=== PATIENT | female | born 1990 | race Caucasian/White ===

== ENCOUNTER 2019-06-21 16:49 | Emergency (ER) | payer SELFPAY ==
--- NOTE | 2019-06-21 17:35 | Emergency Department Report ---
{null, Blank Doc - Documentation Documentation: 28-year-old female that presents with vaginal bleeding and pelvic pain. This initial assessment/diagnostic orders/clinical plan/treatment(s) is/are subject to change based on patient's health status, clinical progression and re- assessment by fellow clinical providers in the ED. Further treatment and workup at subsequent clinical providers discretion. Patient/guardians urged not to elope from the ED as their condition may be serious if not clinically assessed and managed. Initial orders include: 1- Patient sent to [facility] for further evaluation and treatment 2- labs 3- UA 4- US OB }
[2019-06-21 18:49] LABS: Bacteria,Urine 1+ /HPF (Negative); Bilirubin,Urine NEG (Negative); Blood,Urine LG (Negative); Color,Urine Yellow (Yellow); Mucus,Urine FEW /HPF; Protein,Urine <15 mg/dL mg/dL (Negative); Urobilinogen,Urine < 2.0 mg/dL (<2.0)
[2019-06-21 18:55] LABS: Basophils % (Auto) 0.6 % (0.0-1.8); Eosinophils # (Auto) 0.2 K/mm3 (0.0-0.4); Hematocrit 40.9 % (30.3-42.9); Lymphocytes # (Auto) 2.4 K/mm3 (1.2-5.4); Lymphocytes % (Auto) 33.9 % (13.4-35.0); Mean Corpuscular HGB Conc 34 % (30-34); Mean Corpuscular Volume 91 fl (79-97); Monocytes # (Auto) 0.4 K/mm3 (0.0-0.8); Monocytes % (Auto) 6.2 % (0.0-7.3); Platelet Count 271 K/mm3 (140-440); Red Blood Count 4.48 M/mm3 (3.65-5.03); Red Cell Distribution Width 12.9 % (13.2-15.2)
--- NOTE | 2019-06-21 20:16 | Ultrasound Report ---
{null, OB Ultrasound HISTORY: pelvic pain and vaginal bleeding. TECHNIQUE: Grayscale and color imaging performed. COMPARISON: No recent comparison exam. FINDINGS: Transabdominal and endovaginal imaging was performed. Uterus measures 8.2 x 3.2 x 5.2 cm with endometrial echo complex measuring 6 mm. No intrauterine gest ation identified. No pelvic free fluid. Both ovaries are normal in size and appearance, with tiny ova facundo follicles noted. IMPRESSION: Unremarkable exam. Signer Name: Daniel Santiago MD Signed: 06/21/2019 8:11 PM Workstation Name: [id number] }
[2019-06-21] MEDS ORDERED: ACETAMINOPHEN W/CODEINE 300-30 MG TAB PO ONE (21:02)
--- NOTE | 2019-06-21 21:38 | Emergency Department Report ---
{null, ED Female HPI - General Chief complaint: Vaginal Bleeding Stated complaint: /ABD PAIN Time Seen by Provider: 06/21/19 17:34 Source: patient Mode of arrival: Ambulatory Limitations: No Limitations - History of Present Illness Initial comments: Ms. Oh is s 28 y/o female, G3, P2, A0, who presents for vaginal bleeding x 2 weeks. She states she is using 2 pads daily, had pos test at home, LMP 2 months ago. state some abd cramping, no fever, no chills, no n/v, no back pain , no vaginal discharge , she is and denies possibilty or concern for STI. MD Complaint: vaginal bleeding Onset/Timin -: week(s) Location: suprapubic, LLQ, RLQ Radiation: suprapubic Severity: moderate Severity scale (0 -10): 4 Quality: cramping Consistency: intermittent Improves with: none Worsens with: movement Are you Now?: Yes Last Menstrual Period: 05/02/19 EDC: 02/06/20 Associated Symptoms: vaginal bleeding, abdominal pain. denies: nausea/vomiting, fever/chills, headaches, loss of appetite, dysuria, hematuria, shortness of breath, syncope, weakness - Related Data Sexually active: Yes : 3 Para: 2 A: 0 Home Medications Medication Instructions Recorded Confirmed Last Taken Mv-Mn/Iron/FA/Herbal/Digestive 1 tab PO DAILY 10/24/13 10/24/13 10/23/13 08:00 [ One Tablet] Previous Rx's Medication Instructions Recorded Last Taken Type cephALEXin [Keflex] 500 mg PO Q12HR 7 Days #14 cap 06/21/19 Unknown Rx Allergies Allergy/AdvReac Type Severity Reaction Status Date / Time No Known Allergies Allergy Verified 10/24/13 04:26 ED Review of Systems ROS: Stated complaint: /ABD PAIN Other details as noted in HPI Constitutional: denies: chills, fever Eyes: denies: eye pain, eye discharge, vision change ENT: denies: ear pain, throat pain Respiratory: denies: cough, shortness of breath, wheezing Cardiovascular: denies: chest pain, palpitations Endocrine: no symptoms reported Gastrointestinal: abdominal pain (cramps). denies: nausea, vomiting, diarrhea, constipation, hematemesis, melena, hematochezia Genitourinary: abnormal menses (ovarian cyst ), other (vaginal bleeding ). den ies: urgency, dysuria, frequency, hematuria, discharge, dyspareunia Musculoskeletal: denies: back pain, joint swelling, arthralgia Skin: as per HPI Neurological: denies: headache, weakness, paresthesias Psychiatric: denies: anxiety, depression Hematological/Lymphatic: denies: easy bleeding, easy bruising ED Past Medical Hx - Past Medical History Previous Medical History?: No Hx Hypertension: No Hx Congestive Heart Failure: No Hx Diabetes: No Hx Deep Vein Thrombosis: No Hx Renal Disease: No Hx Sickle Cell Disease: No Hx Seizures: No Hx Asthma: No Hx COPD: No Hx HIV: No - Surgical History Past Surgical History?: No - Social History Smoking Status: Never Smoker Substance Use Type: None - Medications Home Medications: Home Medications Medication Instructions Recorded Confirmed Last Taken Type Mv-Mn/Iron/FA/Herbal/Digestive 1 tab PO DAILY 10/24/13 10/24/13 10/23/13 08:00 History [ One Tablet] cephALEXin [Keflex] 500 mg PO Q12HR 7 Days #14 cap 06/21/19 Unknown Rx ED Physical Exam - General Limitations: No Limitations General appearance: alert, in no apparent distress - Head Head exam: Present: atraumatic, normocephalic - Eye Eye exam: Present: normal appearance, PERRL, EOMI - ENT ENT exam: Present: mucous membranes moist - Neck Neck exam: Present: normal inspection - Respiratory Respiratory exam: Present: normal lung sounds bilaterally. Absent: respiratory distress, wheezes, stridor, chest wall tenderness - Cardiovascular Cardiovascular Exam: Present: regular rate, normal rhythm, normal heart sounds. Absent: systolic murmur, diastolic murmur, rubs, gallop - GI/Abdominal GI/Abdominal exam: Present: soft, normal bowel sounds. Absent: distended, tenderness, guarding, rebound, rigid, bruit, hernia - Rectal Rectal exam: Present: deferred - External exam: Present: other (exam deferred by patient ) - Extremities Exam Extremities exam: Present: normal inspection, full ROM. Absent: tenderness - Back Exam Back exam: Present: normal inspection, full ROM. Absent: tenderness, CVA tenderness (R), CVA tenderness (L), vertebral tenderness - Neurological Exam Neurological exam: Present: alert, oriented X3, CN II-XII intact, normal gait - Psychiatric Psychiatric exam: Present: normal affect, normal mood - Skin Skin exam: Present: warm, dry, intact, normal color. Absent: rash ED Course Vital Signs 06/21/19 06/21/19 17:35 21:05 Temperature 98.4 F Pulse Rate 71 Respiratory 18 18 Rate Blood Pressure 124/77 O2 Sat by Pulse 99 Oximetry ED Medical Decision Making - Lab Data Result diagrams: 06/21/19 18:33 Labs 06/21/19 06/21/19 06/21/19 18:33 18:33 18:33 WBC 6.9 RBC 4.48 Hgb 14.0 Hct 40.9 MCV 91 MCH 31 MCHC 34 RDW 12.9 L Plt Count 271 Lymph % (Auto) 33.9 [place] % (Auto) 6.2 Eos % (Auto) 3.0 Baso % (Auto) 0.6 Lymph # 2.4 [place]ade # 0.4 Eos # 0.2 Baso # 0.0 Seg Neutrophils % 56.3 Seg Neutrophils # 3.9 HCG, Quant 28.68 H Urine Color Urine Turbidity Urine pH Ur Specific [place] Urine Protein Urine Glucose (UA) Urine Ketones Urine Blood Urine Nitrite Urine Bilirubin Urine Urobilinogen Ur Leukocyte Esterase Urine WBC (Auto) Urine RBC (Auto) U Epithel Cells (Auto) Urine Bacteria (Auto) Urine Mucus Blood Type O POSITIVE 06/21/19 Unknown WBC RBC Hgb Hct MCV MCH MCHC RDW Plt Count Lymph % (Auto) [place] % (Auto) Eos % (Auto) Baso % (Auto) Lymph # [place] # Eos # Baso # Seg Neutrophils % Seg Neutrophils # HCG, Quant Urine Color Yellow Urine Turbidity Slightly-cloudy Urine pH 6.0 Ur Specific [place] 1.003 Urine Protein <15 mg/dl Urine Glucose (UA) Neg Urine Ketones Neg Urine Blood Lg Urine Nitrite Neg Urine Bilirubin Neg Urine Urobilinogen < 2.0 Ur Leukocyte Esterase Sm Urine WBC (Auto) 11.0 H Urine RBC (Auto) 6.0 U Epithel Cells (Auto) 8.0 Urine Bacteria (Auto) 1+ Urine Mucus Few Blood Type - Radiology Data Radiology results: report reviewed Findings [facility] [address] [place] [address] Ultrasound Report Signed Patient: ELAINE OH MR#: [id number] : 1990 Acct:[id number] Age/Sex: 28 / F ADM Date: 06/21/19 Loc: ED Attending Dr: Ordering Physician: JOHN HATFIELD NP Date of Service: 06/21/19 Procedure(s): US OB transvaginal Accession Number(s): [id number] cc: JOHN HATFIELD NP OB Ultrasound HISTORY: pelvic pain and vaginal bleeding. TECHNIQUE: Grayscale and color imaging performed. COMPARISON: No recent comparison exam. FINDINGS: Transabdominal and endovaginal imaging was performed. Uterus measures 8.2 x 3.2 x 5.2 cm with endometrial echo complex measuring 6 mm. No intrauterine gestation identified. No pelvic free fluid. Both ovaries are normal in size and appearance, with tiny ovarian follicles noted. IMPRESSION: Unremarkable exam. Signer Name: Daniel Santiago MD Signed: 06/21/2019 8:11 PM Workstation Name: [id number] Transcribed By: Dictated By: Daniel Santiago MD Electronically Authenticated By: Daniel Santiago MD Signed Date/Time: 06/21/192010 DD/ 08 TD/TT: - Medical Decision Making US: no IUP, small ovarian cyst left, h/h normal, hc.6, ua: sm leuk, wbc, bacteria, plan: Keflex, tylenol, follow up with OBGYN in 2 days for follow up HCG, and evaluation, pt verbalized agreement and understanding of discharge plan. this could be early or trending down hcg from miscarriage. pt verbalized agreement and understanding of same. Critical care attestation.: If time is entered above; I have spent that time in minutes in the direct care of this critically ill patient, excluding procedure time. ED Disposition Clinical Impression: Abnormal uterine bleeding (AUB), Threatened miscarriage in early Disposition: DC-01 TO HOME OR SELFCARE Is pt being admited?: No Does the pt Need Aspirin: No Condition: Stable Instructions: Threatened Miscarriage (ED), Urinary Tract Infection in Women (ED) Additional Instructions: follow up with OBGYN in 1-2 days, This could be an early or threatened miscarriage. Prescriptions: cephALEXin [Keflex] 500 mg PO Q12HR 7 Days #14 cap Referrals: [facility] [Provider Group] - 3-5 Days Forms: Work/School Release Form(ED) Time of Disposition: 21:57 Print Language: NEPALI }
[2019-06-21 22:39] VITALS: BP 120/78
== END 2019-06-21 22:38 | disposition home or self-care (01) ==
LOC: ED 16:49
DX: O20.0 Threatened abortion (principal); Z79.899 Other long term (current) drug therapy; Z3A.01 Less than 8 weeks gestation of pregnancy
CPT/HCPCS: 36415; 76801; 76817; 81001; 84702; 85025; 86900; 86901; 87086

== ENCOUNTER 2020-09-13 02:57 | Outpatient (CLI) | payer OTHER, SELFPAY ==
[2020-09-13] MEDS ORDERED: ePHEDrine SULFATE 50 MG/1 ML INJ IV PRN (04:06)
[2020-09-13] MEDS ORDERED: LIDOCAINE (2%) 20 MG/1 ML VIAL 20 ML MDV INFILTRATI ONE (04:06)
[2020-09-13] MEDS ORDERED: MINERAL OIL 30 ML ORAL LIQD PO PRN (04:06)
[2020-09-13] MEDS ORDERED: TERBUTALINE 1 MG/1 ML INJ SUB-Q PRN (04:06)
[2020-09-13] MEDS ORDERED: OXYTOCIN DRIP 30 UNITS/500 ML BAG IV SCH (05:00)
[2020-09-13 05:52] LABS: Hematocrit 33.6 % (30.3-42.9); Hemoglobin 11.8 gm/dl (10.1-14.3); Mean Corpuscular HGB Conc 35 % (30-34); Mean Corpuscular Volume 87 fl (79-97); Platelet Count 162 K/mm3 (140-440); Red Blood Count 3.88 M/mm3 (3.65-5.03)
[2020-09-13] MEDS: LACTATED RINGERS 1,000 ML IV SCH ×2 (06:06→07:08)
[2020-09-13 07:08] VITALS: BP 130/77
== END 2020-09-13 11:12 | disposition home or self-care (01) ==
LOC: TRG 02:57 → APU 02:59 → TRG 04:06 → LD 04:06 → UNDOADMIN 04:06 → TRG 11:12 → UNDODISIN 11:25
DX: O62.9 Abnormality of forces of labor, unspecified (principal); O48.0 Post-term pregnancy; Z3A.40 40 weeks gestation of pregnancy; Z20.822 Contact with and (suspected) exposure to COVID-19
CPT/HCPCS: 36415; 59025; 85027; 86592; 86850; 86900; 86901; 96360; 96361; J7120; U0003; G0378

== ENCOUNTER 2020-09-15 22:11 | Inpatient (IN) | payer MEDICAID, OTHER ==
--- NOTE | 2020-09-16 00:25 | Ultrasound Report ---
ULTRASOUND OBSTETRIC LIMITED ULTRASOUND BIOPHYSICAL PROFILE INDICATION / CLINICAL INFORMATION: Evaluate well-being. COMPARISON: None available. FINDINGS: BREATHING MOVEMENT = 2 GROSS BODY MOVEMENT = 2 TONE = 2 QUALITATIVE AMNIOTIC FLUID VOLUME = 2 TOTAL BIOPHYSICAL SCORE = 8/8 AMNIOTIC FLUID INDEX (cm) = 6.7 PRESENTATION: Cephalic. HEART RATE (beats per minute): 152 ADDITIONAL FINDINGS: None. IMPRESSION: 1. Biophysical Score = 8/8 2. No acute abnormality of the pelvis. Signer Name: Tra Marquez MD Signed: 09/16/2020 12:20 AM Workstation Name: [id number]
[2020-09-16] MEDS ORDERED: LIDOCAINE (2%) 20 MG/1 ML VIAL 20 ML MDV INFILTRATI ONE (00:33)
[2020-09-16] MEDS ORDERED: TERBUTALINE 1 MG/1 ML INJ SUB-Q PRN (00:33)
[2020-09-16] MEDS ORDERED: MINERAL OIL 30 ML ORAL LIQD PO PRN (00:33)
[2020-09-16] MEDS ORDERED: ePHEDrine SULFATE 50 MG/1 ML INJ IV PRN ×2 (00:33→01:53)
[2020-09-16] MEDS ORDERED: LACTATED RINGERS 1,000 ML IV SCH (00:45)
--- NOTE | 2020-09-16 00:57 | History and Physical Report ---
History of Present Illness Date of examination: 09/16/20 Date of admission: 09/16/2020 Chief complaint: Contractions History of present illness: 29 year old presents to L&D with complaint of contractions for past 6 hours. Patient denies leaking of fluid or vaginal bleeding. Patient reports active movement. Patient received care at [facility] and limited records are available. LMP 12/06/2019. EDC 09/11/2020. significant for the following: gestational diabetes (diet controlled), previous section, 2 previous VBACs, chlamydia during this (treated and cured), history of hemorrhage with a previous delivery. labs are as follows: O+, antibody screen negative, HIV negative, hepatitis B surface antigen negative, RPR nonreactive, + chlamydia (KIMBERLEY negative), negative gonorrhea, GBS negative. Past History Past Medical History: no pertinent history Past Surgical History: section [employer] History: chlamydia (treated and cured during this ). denies: gonorrhea, hepatitis B, hepatitis C, herpes, HIV, syphilis, trichomonas Family/Genetic History: none. denies: Down's syndrome Social history: lives with family, full code. denies: smoking, alcohol abuse, prescription drug abuse, IV drug use - Obstetrical History Expected Date of Delivery: 09/11/20 Actual Gestation: 40 Week(s) 5 Day(s) : 6 Para: 3 Hx # Term Pregnancies: 3 Number of Pregnancies: 0 Spontaneous Abortions: 2 Induced : 0 Number of Living Children: 3 Medications and Allergies Allergies Allergy/AdvReac Type Severity Reaction Status Date / Time No Known Allergies Allergy Verified 10/24/13 04:26 Home Medications Medication Instructions Recorded Confirmed Last Taken Type Mv-Mn/Iron/FA/Herbal/Digestive 1 tab PO DAILY 10/24/13 10/24/13 10/23/13 08:00 History [ One Tablet] cephALEXin [Keflex] 500 mg PO Q12HR 7 Days #14 cap 06/21/19 Unknown Rx Active Meds: Active Medications Ephedrine Sulfate (Ephedrine Sulfate 50 Mg/1 Ml Inj) 10 mg IV Q2M PRN PRN Reason: Hypotension Lactated Ringer's (Lactated Ringers) 1,000 mls @ 125 mls/hr IV DIRECT MINAL Oxytocin/Sodium Chloride (Pitocin/Ns 30 Unit/500ml) 30 units in 500 mls @ 40 mls/hr IV TITR MINAL; Protocol Lidocaine (Lidocaine (2%) 20 Mg/1 Ml Vial 20 Ml Mdv) 20 ml INFILTRATI ONCE ONE Stop: 09/16/20 00:34 Mineral Oil (Mineral Oil 30 Ml Oral Liqd) 30 ml PO QHS PRN PRN Reason: Constipation Terbutaline Sulfate (Terbutaline 1 Mg/1 Ml Inj) 0.25 mg SUB-Q ONCE PRN PRN Reason: Hyperstimulation/Hypertonicity Review of Systems All systems: negative (contractions) - Vital Signs Vital signs: Vital Signs Pulse Pulse Ox 108 H 99 09/15/20 22:29 09/15/20 22:29 Temp Pulse Resp BP Pulse Ox 98.9 F 85 18 131/86 100 09/15/20 22:32 09/16/20 00:19 09/15/20 22:32 09/15/20 23:00 09/16/20 00:19 - Physical Exam Abdomen: Positive: normal appearance, soft. Negative: distention, tenderness, guarding, rigidity Genitourinary (Female): Positive: normal external genitalia, normal perenium Vagina: Positive: normal moisture Uterus: Positive: enlarged. Negative: tender Anus/Rectum: Positive: normal perianal skin Extremities: Positive: edema (bilateral pedal edema). Negative: tenderness - Obstetrical FHR: category 2 Uterine Contraction Monitor Mode: External Cervical Dilatation: 4 Cervical Effacement Percentage: 60 station: -3 Uterine Contraction Pattern: Regular Uterine Contraction Intensity: Moderate Results All other labs normal. Assessment and Plan A: at 40 weeks, 5 days gestation. Active labor. Previous section (with 2 previous successful ). GBS negative. P: Admit. Continuous EFM. Consulted with Dr. Lynn re: this patient. Dr. Lynn is in house. Dr. Lynn states to allow patient to labor and attempt vaginal . Discussed this plan with patient and patient states she wants to labor and attempt vaginal .
[2020-09-16] MEDS ORDERED: OXYTOCIN DRIP 30 UNITS/500 ML BAG IV SCH (01:00)
[2020-09-16 01:36] LABS: Hematocrit 33.7 % (30.3-42.9); Hemoglobin 11.3 gm/dl (10.1-14.3); Mean Corpuscular HGB Conc 34 % (30-34); Mean Corpuscular Volume 87 fl (79-97); Platelet Count 159 K/mm3 (140-440); Red Cell Distribution Width 14.7 % (13.2-15.2)
[2020-09-16] MEDS ORDERED: NalbUPHINE 10 MG/1 ML INJ IV PRN (01:53)
[2020-09-16] MEDS ORDERED: diphenhydrAMINE 50 MG/ML VIAL IV PRN (01:53)
[2020-09-16] MEDS ORDERED: ONDANSETRON 4 MG/2 ML INJ IV PRN (01:53)
[2020-09-16] MEDS ORDERED: LACTATED RINGERS 250 ML IV SOLN IV ONE (01:53)
[2020-09-16] MEDS ORDERED: NALOXONE 2 MG/2 ML INJ IV PRN (01:53)
[2020-09-16] MEDS ORDERED: LACTATED RINGERS 250 ML IV ONE (02:00)
[2020-09-16] MEDS ORDERED: fentaNYL-BUPIV 2 MCG/ML-0.125% 200 MCG/100 ML BAG EPIDURAL SCH (02:00)
--- NOTE | 2020-09-16 02:21 | Anesthesia Consultation ---
Anesthesia Consult and Med Hx Date of service: 09/16/20 - Airway Anesthetic Teeth Evaluation: Good ROM Head & Neck: Adequate Mental/Hyoid Distance: Adequate Mallampati Class: Class II Intubation Access Assessment: Probably Good - Pulmonary Exam CTA: Yes - Cardiac Exam Cardiac Exam: RRR - Pre-Operative Health Status ASA Pre-Surgery Classification: ASA2 Proposed Anesthetic Plan: Epidural - Pulmonary Hx Smoking: No Hx Asthma: No COPD: No Hx Pneumonia: No Hx Sleep Apnea: No - Cardiovascular System Hx Hypertension: No Hx Heart Attack/AMI: No Hx Angina: No - Central Nervous System Hx Seizures: No Hx Psychiatric Problems: No - Gastrointestinal Hx Gastroesophageal Reflux Disease: No - Endocrine Hx Renal Disease: No Hx End Stage Renal Disease: No Hx Liver Disease: No Hx Insulin Dependent Diabetes: No Hx Non-Insulin Dependent Diabetes: Yes Hx Hypothyroidism: No Hx Hyperthyroidism: No - Hematic Hx Anemia: No Hx Sickle Cell Disease: No - Other Systems Hx Alcohol Use: No
--- NOTE | 2020-09-16 02:22 | Progress Note ---
Labor Epidural - Labor Epidural Start Time: 02:07 Stop Time: 02:18 Performed by:: JALEEL CAM Procedure: Patient is requesting epidural for labor and pain. H&P, labs were reviewed. Patient IDed, H&P reviewed, all questions and concerns were answered, and consent was signed. Timeout was performed at bedside. Patient in sitting position. Sterile prep and drape was performed. 3ml of 1% lidocaine skin wheal at L[3]- L [4]. 18-gauge Tuohy epidural needle was advanced to loss of resistance with air technique 5cm. Negative CSF negative blood. Epidural catheter advanced to [11] centimeters. [negative] Aspiration [negative] test dose. Sterile dressing applied. Patient tolerated procedure.
--- NOTE | 2020-09-16 05:58 | Event Note ---
Date: 09/16/20 Spontaneous rupture of membranes with clear fluid occurring sometime in the past hour. Chux pad is wet and small amount of bloody show. SVE /-1. Patient is comfortable; has epidural.
[2020-09-16] MEDS ORDERED: OXYTOCIN 10 UNIT/1 ML INJ ONE (06:13)
[2020-09-16] MEDS ORDERED: miSOPROStol 200 MCG TAB ONE (06:17)
[2020-09-16] MEDS ORDERED: miSOPROStol 200 MCG TAB PR ONE (06:20)
[2020-09-16] MEDS ORDERED: LANOLIN/ZINC/DIMETHICONE (LANSINOH) 7 GM TP PRN (06:42)
[2020-09-16] MEDS ORDERED: MAGNESIUM HYDROXIDE (MOM) ORAL LIQD UDC PO PRN (06:42)
[2020-09-16] MEDS ORDERED: WITCH HAZEL/ GLYCERIN PAD TP PRN (06:42)
[2020-09-16] MEDS ORDERED: ACETAMINOPHEN 500 MG TAB PO ONE (06:45)
--- NOTE | 2020-09-16 06:58 | Procedure Note ---
OB Delivery Note - Delivery Date of Delivery: 09/16/20 Surgeon: LEW MARTINEZ Estimated blood loss: 300cc - Vaginal Delivery presentation: vertex Delivery position: OA Intrapartum events: meconium Delivery induction: none Delivery monitor: external FHT, external uterine Route of delivery: Delivery placenta: spontaneous Delivery cord: 3 umbilical vessels Episiotomy: none Delivery laceration: none Anesthesia: epidural Delivery comments: Spontaneous vaginal delivery at 06:15 of liveborn female infant weighing 8 lb. 12 oz. over intact perineum with apgars of 8/8. Meconium stained amniotic fluid; NICU called to attend delivery. was atraumatic; no nuchal cord. Baby was vigorous at and was placed skin to skin with mom immediately after . Baby was suctioned with bulb syringe and dried with towels. Spontaneous cry and respirations. 3 vessel cord double clamped and cut and baby taken to radiant warmer for further suctioning. Spontaneous delivery of intact placenta and membranes; EBL 300 cc. Pitocin and cytotec 800 mcg given to control bleeding. Fundus firmed with massage. No lacerations noted. Vaginal sweep negative. Sponge and instrument counts correct. Mother and baby stable.
[2020-09-16] MEDS ORDERED: ACETAMINOPHEN 500 MG TAB PO SCH (07:30)
[2020-09-16] MEDS: IBUPROFEN 600 MG TAB PO SCH ×2 (12:30→17:50)
--- NOTE | 2020-09-16 12:50 | Post Anesthesia Evaluation ---
- Post Anesthesia Evaluation Patient Participated: Yes Airway Patent: Yes Stable Respiratory Function: Yes Nausea/Vomiting: No Temp > 96.8F: Yes Pain Manageable: Yes Adequeate Hydration: Yes Anesthesia Complications: No Block Receding Appropriately: Yes Patient on Ventilator: No
[2020-09-16] MEDS: HYDROcodone/ACETAMINOPHEN 5-325 MG TAB PO PRN (20:12)
[2020-09-16 21:15] LABS: Hematocrit 27.1 % (30.3-42.9); Hemoglobin 9.3 gm/dl (10.1-14.3)
[2020-09-17] MEDS: IBUPROFEN 600 MG TAB PO SCH ×2 (05:25)
[2020-09-17] MEDS ORDERED: FERROUS SULFATE 325 MG TAB PO SCH (10:00)
--- NOTE | 2020-09-17 10:51 | Progress Note ---
Assessment and Plan PPD #1 A: S/P + COVID asymptomatic Asymptomatic anemia P: Continue routine pp care Fe prescribed D/C home if stable per pt request Subjective - Subjective Date of service: 09/17/20 Principal diagnosis: s/p Patient reports: appetite normal, voiding normally, pain well controlled, ambulating normally : doing well, bottle feeding Objective - Vital Signs Latest vital signs: Vital Signs Temp Pulse Resp BP BP Pulse Ox 09/17/20 08:52 97.8 F 80 18 115/80 97 09/16/20 22:36 98.1 F 92 H 20 107/69 97 09/16/20 17:44 98.8 F 98 H 18 96/63 09/16/20 12:10 98 F 94 H 20 99/75 Intake and Output 09/16/20 09/17/20 09/17/20 22:59 06:59 14:59 Intake Total 320 480 240 Output Total 1400 Balance -1080 480 240 Intake: Oral 320 120 240 Intake, Free Water 360 Output: Urine 1400 Void 1400 Other: Total, Intake Amount 320 120 240 Total, Output Amount 500 # Voids Void 3 1 1 - Exam Breasts: Present: normal Abdomen: Present: normal appearance, soft, normal bowel sounds Vulva: both: normal Uterus: Present: normal, firm, fundal height below umbilicus Extremities: Present: normal - Labs Labs: Abnormal lab results 09/16/20 09/16/20 Range/Units 09:30 20:51 Hgb 9.3 L (10.1-14.3) gm/dl Hct 27.1 L D (30.3-42.9) % Coronavirus (PCR) Positive A (Negative)
--- NOTE | 2020-09-17 11:00 | Discharge Summary ---
Providers - Providers Date of Admission: 09/16/20 00:33 Date of discharge: 09/17/20 Attending physician: GILSON SMITH Primary care physician: GILSON SMITH Hospitalization Reason for admission: active labor Delivery: Episiotomy: none Laceration: none Other procedures: none complications: other (+ covid) Discharge diagnosis: IUP at term delivered baby: female Hospital course: Pt was admitted in labor. She had a and tested pos for covid. Pt was d/'d home w/o problems. See H&P,delivery summary, and pp notes. Condition at discharge: Stable Disposition: DC-01 TO HOME OR SELFCARE Plan - Discharge Medications Prescriptions: Ferrous Sulfate [Feosol 325 MG tab] 325 mg PO BID #120 tablet Ibuprofen [Motrin 600 MG tab] 600 mg PO Q6HR #30 tablet - Provider Discharge Summary Activity: routine, no sex for 6 weeks, no heavy lifting 4 weeks, no strenuous exercise Diet: routine Instructions: routine Additional instructions: [] Smoking cessation referral if applicable(refer to patient education folder for contact #) [] Refer to [facility] Booklet Call your doctor immediately for: * Fever > 100.5 * Heavy vaginal bleeding ( >1 pad per hour) * Severe persistent headache * Shortness of breath * Reddened, hot, painful area to leg or breast * Drainage or odor from incision. * Keep incision clean and dry at all times and follow doctor's instructions regarding bathing/showering - Follow up plan Follow up: GILSON SMITH MD [Primary Care Provider] - 6 Weeks
[2020-09-17] MEDS: HYDROcodone/ACETAMINOPHEN 5-325 MG TAB PO PRN (15:05)
[2020-09-17 17:04] VITALS: BP 111/75
== END 2020-09-17 17:00 | disposition home or self-care (01) | DRG 805 ==
LOC: TRG 22:11 → APU 22:21 → TRG 09-16 00:33 → LD 09-16 00:33 → OB 09-16 09:54
PROVIDERS: ADMIT Obstetrics & Gynecology; ATTEND Obstetrics & Gynecology
PROC: 10E0XZZ Delivery of Products of Conception, External Approach (ICD-10-PCS; principal; 2020-09-16)
PROC: 3E0R3BZ Introduction of Anesthetic Agent into Spinal Canal, Percutaneous Approach (ICD-10-PCS; 2020-09-16)
PROC: 00HU33Z Insertion of Infusion Device into Spinal Canal, Percutaneous Approach (ICD-10-PCS; 2020-09-16)
DX: O98.52 Other viral diseases complicating childbirth (principal); U07.1 COVID-19; Z37.0 Single live birth; O77.0 Labor and delivery complicated by meconium in amniotic fluid; O99.02 Anemia complicating childbirth; O24.92 Unspecified diabetes mellitus in childbirth; O34.211 Maternal care for low transverse scar from previous cesarean delivery; Z3A.40 40 weeks gestation of pregnancy
CPT/HCPCS: 36415; 59025; 76815; 76819; 85014; 85018; 85027; 86592; 86762; 86850; 86900; 86901; G0378; J2590; J7120; U0003